=== PATIENT | female | born 1965 | race Caucasian/White ===

== ENCOUNTER 2018-12-27 11:02 | Emergency (ER) | payer BC ==
[2018-12-27] MEDS ORDERED: Potassium Chloride 20 MEQ Tab.ER PO ONE (11:32)
[2018-12-27] MEDS ORDERED: Meclizine 25 MG Tab PO ONE (11:32)
[2018-12-27] MEDS ORDERED: Potassium Chloride 10% 20 MEQ/15 ML Soln 15 ML UD Cup PO ONE (11:39)
--- NOTE | 2018-12-27 11:45 | EDM.PDOC ---
ED HPI GENERAL MEDICAL PROBLEM - General Stated Complaint: POTATISUM LOW Time Seen by Provider: 12/27/18 11:02 Source of Information: Reports: Patient, Family History Limitations: Reports: No Limitations - History of Present Illness INITIAL COMMENTS - FREE TEXT/NARRATIVE: 53 y.o.w.jacoby came to the ED with her SO after she was seen in the Walk in clinic and transferred to ed due to low potassium and dizziness. Her potassium was 2.0, Mg level(?). Her influenza test was post for Influenza A. Pt refused to take Tamiflu because her symptoms started last Wednesday and Tamiflu may not work anymore. Her dizziness come and goes for few days. It usually subsides she is in supine position and does not move. Pt denies sick contact. Her potassium was low in the past. Cause of her low potassium was not determined yet. No F/C no N/V. No chest pain or any other acute med. issues. BP 153/76 Pulse 91 Temp 37.1 RR 18 Pulse ox was 100% on RA Onset Date: 12/25/18 Duration: Intermittent Location: Reports: Head, Generalized Quality: Reports: Other (Dizzy) Severity: Moderate Improves with: Reports: Rest Worsens with: Reports: Movement Context: Reports: Other Associated Symptoms: Reports: Other (cold symptoms, running nose, sore throat) - Related Data Allergies Allergy/AdvReac Type Severity Reaction Status Date / Time No Known Allergies Allergy Verified 01/20/17 21:43 Home Meds: Home Meds Meclizine [Antivert] 25 mg PO Q6H PRN #20 tab 12/27/18 [Rx] Potassium Chloride [Potassium Chloride Solution] 20 meq PO BID #4 cup 12/27/18 [ Rx] ED ROS GENERAL - Review of Systems Review Of Systems: See Below Constitutional: Reports: Fatigue HEENT: Reports: Rhinitis Respiratory: Reports: No Symptoms Cardiovascular: Reports: No Symptoms Endocrine: Reports: No Symptoms GI/Abdominal: Reports: No Symptoms : Reports: No Symptoms Musculoskeletal: Reports: No Symptoms Skin: Reports: No Symptoms Neurological: Reports: Dizziness Psychiatric: Reports: No Symptoms Hematologic/Lymphatic: Reports: No Symptoms Immunologic: Reports: No Symptoms ED EXAM, DIZZINESS - Physical Exam Exam: See Below Exam Limited By: No Limitations General Appearance: Alert, WD/WN, Mild Distress Eye Exam: Bilateral Eye: Nystagmus (not worse with head movement) Ears: Normal External Exam Nose: Nasal Drainage Throat/Mouth: No Airway Compromise, Other (throat is red with whitish material on the tongue. Pt refused RST and Tongue sawbs ) Head Exam: Atraumatic, Normocephalic Neck: Normal Inspection, Supple, Non-Tender, Full Range of Motion Respiratory/Chest: No Respiratory Distress, Lungs Clear, Normal Breath Sounds, No Accessory Muscle Use, Chest Non-Tender Cardiovascular: Normal Peripheral Pulses, Regular Rate, Rhythm, No Edema, No Gallop, No JVD, No Murmur GI/Abdominal: Normal Bowel Sounds, Soft, Non-Tender, No Organomegaly, No Abnormal Bruit, No Mass, Pelvis Stable (Female) Exam: Deferred Rectal (Female) Exam: Deferred Back Exam: Normal Inspection, Full Range of Motion Extremities: Normal Inspection, Normal Range of Motion, Non-Tender, No Pedal Edema, Normal Capillary Refill Psychiatric: Normal Affect, Normal Mood Skin Exam: Warm, Dry, Intact, Normal Color, No Rash EKG INTERPRETATION EKG Date: 12/27/18 Time: 12:45 Rhythm: NSR Rate (Beats/Min): 95 [place]: Normal P-Wave: Present QRS: Normal ST-T: Normal QT: Normal Comparison: NA - No Prior EKG Course - Vital Signs Text/Narrative:: 53 y.o.w.f came to the ED with her SO after she was seen in the Walk in clinic and transferred to te ed due to low potassium and dizziness. Her potassium was 2.0, Mg level(?). Her influenza test was post for Influenza A. Pt refused to take Tamiflu because her symptoms started last Wednesday and Tamiflu may not work anymore. Her dizziness come and goes for few days. It usually subsides she is in supine position and does not move. Pt denies sick contact. Her potassium was low in the past. Cause of her low potassium was not determined yet. No F/C no N/V. No chest pain or any other acute med. issues. BP 153/76 Pulse 91 Temp 37.1 RR 18 Pulse ox was 100% on RA PE: WNWD W F with sore throat, pailful swallowing and Dizziness, refused RST, refuses ABX, Christiano Nystagmus Labs: K 2.9 Mg 2.0 Impression: Vertigo, Hypokalemia, Influenza A, Pharyngitis Tx: Antivert, 40 meq potassium Reexam: Pt refused RST, refused Tamilfu, refused test to check for oral fungus. Pt sated the Dizziness improved after Antivert was given Plan: D/C with instructions Last Recorded V/S: Last Vital Signs Temp 37.1 C 12/27/18 11:02 Pulse 92 12/27/18 11:02 Resp 18 12/27/18 11:02 BP 153/78 H 12/27/18 11:02 Pulse Ox 100 12/27/18 11:02 - Orders/Labs/Meds Orders: Active Orders 24 hr Category Date Time Status EKG Documentation Completion [RC] ASDIRECTED Care 12/27/18 12:30 Active EKG 12 Lead [EK] Routine Ther 12/27/18 12:30 Ordered Labs: Laboratory Tests 12/27/18 Range/Units 11:58 Magnesium 2.0 (1.8-2.5) mg/dL Meds: Medications Discontinued Medications Generic Name Dose Route Start Last Admin Trade Name Freq PRN Reason Stop Dose Admin Meclizine HCl 25 mg 12/27/18 11:32 12/27/18 11:45 Antivert PO 12/27/18 11:33 25 mg ONETIME ONE Administration Potassium Chloride 40 meq 12/27/18 11:32 12/27/18 11:51 Klor-Con M20 PO 12/27/18 11:33 Not Given ONETIME ONE Potassium Chloride 40 meq 12/27/18 11:39 12/27/18 11:45 Potassium Chloride Solution PO 12/27/18 11:40 40 meq ONETIME ONE Administration Departure - Departure Time of Disposition: 12:20 Disposition: Home, Self-Care 01 Condition: Good Clinical Impression: Vertigo, Influenza A, Hypokalemia - Discharge Information Prescriptions: Meclizine [Antivert] 25 mg PO Q6H PRN #20 tab PRN Reason: dizzyness Potassium Chloride [Potassium Chloride Solution] 20 meq PO BID #4 cup Instructions: Hypokalemia Referrals: Nisha Chakraborty CONTROL TECHNICIAN [Primary Care Provider] - Forms: ED Department Discharge Additional Instructions: Please take the potassium chloride and Antivert as recommended, for 2 days. Please get the potassium level checked 1-2 days after you have taken the last does of potassium chloride. Please please come back if your symptoms get worse acutely. - My Orders Last 24 Hours: My Active Orders 12/27/18 12:30 EKG Documentation Completion [RC] ASDIRECTED EKG 12 Lead [EK] Routine - Assessment/Plan Last 24 Hours: My Active Orders 12/27/18 12:30 EKG Documentation Completion [RC] ASDIRECTED EKG 12 Lead [EK] Routine
== END 2018-12-27 13:00 | disposition home or self-care (01) ==
LOC: FB.ED 11:02
DX: E87.6 Hypokalemia (principal); R42 Dizziness and giddiness; J10.1 Influenza due to other identified influenza virus with other respiratory manifestations
CPT/HCPCS: 36415; 70360; 83735; 93005; 94640; 96361; 96374; 99284-25; A9270-GY; J1200; J7030; J7620-GY

== ENCOUNTER 2018-12-27 18:14 | Emergency (ER) | payer BC ==
[2018-12-27] MEDS ORDERED: Sodium Chloride 0.9% 1,000 ML IV ONE (18:23)
[2018-12-27] MEDS ORDERED: Nystatin Susp 100,000 Unit/ML 5 ML UD Cup PO ONE (18:23)
[2018-12-27] MEDS ORDERED: Albuterol/Ipratropium 3.0-0.5 MG/3 ML Neb Soln NEB ONE (18:24)
[2018-12-27] MEDS: Sodium Chloride 0.9% 10 ML Syringe FLUSH PRN ×2 (18:40→19:57)
[2018-12-27] MEDS ORDERED: Morphine 2 MG/ML Syringe IVPUSH ONE (19:15)
--- NOTE | 2018-12-27 19:24 | EDM.PDOC ---
ED HPI GENERAL MEDICAL PROBLEM - General Stated Complaint: SOB DIZZY Time Seen by Provider: 12/27/18 18:14 Source of Information: Reports: Patient, Family History Limitations: Reports: No Limitations - History of Present Illness INITIAL COMMENTS - FREE TEXT/NARRATIVE: 53 y.o.w.f came to the ed about 6 hours after she was d/c'd from this ED with viral syndrome, hypokalemia and vertigo. She was doing fine on D/C. Pt came back now because of worsening sore throat and SOB. No dizziness, she just does not feel well. He CBC was nl 6 hours ago. Her potassium was 2.9. No C/P, as per SO, pt had poor po intake/water intake. No other acute medical issues. BP 144/83 Temp 37.1 RR 18 Pulse ox 98% on RA Pulse 89 Onset Date: 12/23/18 Onset Time: 07:00 Duration: Hour(s):, Day(s):, Intermittent Location: Reports: Generalized general Pain Score (Numeric/FACES): 4 - Related Data Allergies Allergy/AdvReac Type Severity Reaction Status Date / Time No Known Allergies Allergy Verified 12/27/18 19:15 Home Meds: Home Meds Meclizine [Antivert] 25 mg PO Q6H PRN #20 tab 12/27/18 [Rx] Potassium Chloride [Potassium Chloride Solution] 20 meq PO BID #4 cup 12/27/18 [ Rx] Past Medical History - Past Health History Medical/Surgical History: Denies Medical/Surgical History Social & Family History - Family History Family Medical History: Noncontributory - Caffeine Use Caffeine Use: Reports: Soda ED ROS GENERAL - Review of Systems Review Of Systems: See Below Constitutional: Reports: No Symptoms HEENT: Reports: Throat Pain Respiratory: Reports: Shortness of Breath Cardiovascular: Reports: No Symptoms Endocrine: Reports: No Symptoms GI/Abdominal: Reports: No Symptoms : Reports: No Symptoms Musculoskeletal: Reports: No Symptoms Skin: Reports: No Symptoms Neurological: Reports: No Symptoms Psychiatric: Reports: No Symptoms Hematologic/Lymphatic: Reports: No Symptoms Immunologic: Reports: No Symptoms ED EXAM, GENERAL - Physical Exam Exam: See Below Exam Limited By: No Limitations General Appearance: Alert, WD/WN, Mild Distress Eye Exam: Bilateral Eye: Normal Inspection Ears: Normal External Exam Ear Exam: Bilateral Ear: Auricle Normal Nose: Normal Inspection Throat/Mouth: Normal Lips, Normal Voice, No Airway Compromise, Dysphagia, Inflammation Head: Atraumatic, Normocephalic Neck: Normal Inspection, Supple, Non-Tender, Full Range of Motion Respiratory/Chest: No Respiratory Distress, Lungs Clear, Normal Breath Sounds, No Accessory Muscle Use, Chest Non-Tender Cardiovascular: Normal Peripheral Pulses, Regular Rate, Rhythm, No Edema, No Gallop, No Rub Peripheral Pulses: 2+: Brachial (L) GI/Abdominal: Normal Bowel Sounds, Soft, Non-Tender, No Organomegaly, No Distention, No Abnormal Bruit, No Mass (Female) Exam: Deferred Rectal (Female) Exam: Deferred Back Exam: Normal Inspection Extremities: Normal Inspection Neurological: Alert, Oriented, CN II-XII Intact, Normal Cognition, Normal Gait Psychiatric: Normal Affect Skin Exam: Warm, Dry, Intact, Normal Color, No Rash Lymphatic: No Adenopathy Course - Vital Signs Text/Narrative:: 53 y.o.w.f came to the ed about 6 hours after she was d/c'd from this ED with viral syndrome, hypokalemia and vertigo. She was doing fine on D/C. Pt came back now because of worsening sore throat and SOB. No dizziness, she just does not feel well. He CBC was nl 6 hours ago. Her potassium was 2.9. No C/P, as per SO, pt had poor po intake/water intake. No other acute medical issues. BP 144/83 Temp 37.1 RR 18 Pulse ox 98% on RA Pulse 89 PE: WNWD WF with sore throat (refused RST and fungal swab) Imaging: Soft tissue neck was neg, Epiglottis was nl, official report is pending Impression: SOB sore throat Tx: Duoneb, Nystatin, NS Reexam: Pt's symptoms improved, Pt refused RST, Fungal swab, refused admission. Plan: D/C with instructions Last Recorded V/S: Last Vital Signs Temp 37.5 C 12/27/18 20:00 Pulse 85 12/27/18 20:00 Resp 17 12/27/18 20:00 BP 142/72 H 12/27/18 20:00 Pulse Ox 100 12/27/18 20:00 - Orders/Labs/Meds Orders: Active Orders 24 hr Category Date Time Status RT Aerosol Therapy [RC] ASDIRECTED Care 12/27/18 18:25 Active CXR [Chest 1V Frontal] [CR] Stat Exams 12/27/18 18:25 Stop Req Neck Soft Tissue [CR] Stat Exams 12/27/18 18:25 Taken Peripheral IV Insertion Adult [OM.PC] Routine Oth 12/27/18 18:45 Ordered Meds: Medications Discontinued Medications Generic Name Dose Route Start Last Admin Trade Name Freq PRN Reason Stop Dose Admin Albuterol/Ipratropium 3 ml 12/27/18 18:24 12/27/18 18:45 Duoneb 3.0-0.5 Mg/3 Ml NEB 12/27/18 18:25 3 ml ONETIME ONE Administration Diphenhydramine HCl 25 mg 12/27/18 19:53 12/27/18 19:56 Benadryl IVPUSH 12/27/18 19:54 25 mg ONETIME STA Administration Sodium Chloride 1,000 mls @ 999 mls/hr 12/27/18 18:23 12/27/18 18:45 Normal Saline IV 12/27/18 19:23 999 mls/hr .BOLUS ONE Administration Nystatin 5 ml 12/27/18 18:23 12/27/18 19:29 Mycostatin PO 12/27/18 18:24 5 ml ONETIME ONE Administration Sodium Chloride 10 ml 12/27/18 18:45 12/27/18 19:57 Saline Flush FLUSH 10 ml ASDIRECTED PRN Administration Keep Vein Open Departure - Departure Time of Disposition: 19:51 Disposition: Home, Self-Care 01 Condition: Good Clinical Impression: Viral syndrome - Discharge Information Instructions: Influenza, Adult, [id number] Referrals: Nisha Chakraborty NP [Primary Care Provider] - Forms: ED Department Discharge Additional Instructions: Please cont your meds, please take the meds as recommended at your previous D/ C. Please f/u, come back if your symptoms get worse acutely. Please make carlos, all your meals are arm. - My Orders Last 24 Hours: My Active Orders 12/27/18 18:25 RT Aerosol Therapy [RC] ASDIRECTED CXR [Chest 1V Frontal] [CR] Stat Neck Soft Tissue [CR] Stat 12/27/18 18:45 Peripheral IV Insertion Adult [OM.PC] Routine - Assessment/Plan Last 24 Hours: My Active Orders 12/27/18 18:25 RT Aerosol Therapy [RC] ASDIRECTED CXR [Chest 1V Frontal] [CR] Stat Neck Soft Tissue [CR] Stat 12/27/18 18:45 Peripheral IV Insertion Adult [OM.PC] Routine
[2018-12-27] MEDS ORDERED: diphenhydrAMINE 50 MG/ML SDV IVPUSH STA (19:53)
--- NOTE | 2018-12-28 13:45 | CR ---
INDICATION: Neck pain - shortness of breath, question epiglottitis. NECK, SOFT TISSUE: Frontal and lateral views of the neck were obtained. The airway appears to be patent with no evidence of epiglottitis identified. Prevertebral space appeared to be normal. Narrowing of the disk spaces is noted at C5-6, C6-7. No significant hypertrophic degenerative changes were seen, however. Slight straightening of the normal cervical lordosis is noted, which may be positional. IMPRESSION: No evidence of epiglottitis identified. MTDD
== END 2018-12-27 20:09 | disposition home or self-care (01) ==
LOC: FB.ED 18:14
DX: B34.9 Viral infection, unspecified (principal)
CPT/HCPCS: 36415; 70360; 83735; 93005; 94640; 96361; 96374; 99284-25; A9270-GY; J1200; J7030; J7620-GY

== ENCOUNTER 2025-07-20 02:59 | Emergency (ER) | payer BC ==
[2025-07-20 03:23] LABS: BASOPHILS ABSOLUTE AUTO 0.1 x10-3/uL (0.0-0.1); BASOPHILS PERCENT AUTO 1.0 % (0.2-1.5); EOSINOPHILS ABSOLUTE AUTO 0.2 x10-3/uL (0.0-0.8); EOSINOPHILS PERCENT AUTO 2.8 % (0.6-8.1); LYMPHOCYTES ABSOLUTE AUTO 1.1 x10-3/uL (1.0-4.4); LYMPHOCYTES PERCENT AUTO 17.9 % (18.4-52.1); MEAN PLATELET VOLUME 8.1 fL (7.1-12.4); MONOCYTES ABSOLUTE AUTO 0.4 x10-3/uL (0.3-1.0); MONOCYTES PERCENT AUTO 6.4 % (4.4-15.7); NEUTROPHILS ABSOLUTE AUTO 4.4 x10-3/uL (1.5-6.3); NEUTROPHILS PERCENT AUTO 71.9 % (30.8-76.2); PLATELET COUNT,PLT 254 x10(3)uL (151-488); RED BLOOD CELL COUNT 4.65 x10(6)uL (3.60-5.20); RED CELL DISTRIBUTION WIDTH 12.6 % (12.3-16.5); WHITE BLOOD CELL COUNT,WBC 6.2 x10-3/uL (3.0-10.3)
[2025-07-20 03:24] VITALS: BP 136/97; PULSE 93
[2025-07-20 03:33] LABS: A/G RATIO 1.2; ALANINE AMINOTRANSFERASE,ALT 25 U/L (12-36); ASPARTATE AMNIOTRANSFERASE,AST 19 IU/L (5-25); BILIRUBIN TOTAL 0.8 mg/dL (0.1-1.3); BLOOD UREA NITROGEN,BUN 5 mg/dL (7-18); CARBON DIOXIDE,CO2 22 mmol/L (21-32); CHLORIDE,CL 102 mmol/L (100-110); CREATININE 0.7 mg/dL (0.55-1.02); EST CRCL DRUG DOSING (CG) 76.57 mL/min; ESTIMATED GFR 101 mL/min (>60); GLUCOSE RANDOM 127 mg/dL (80-116); PROTEIN TOTAL,TP 6.9 g/dL (6.0-8.0); SODIUM,NA 136 mmol/L (135-145)
[2025-07-20 03:34] LABS: POTASSIUM,K 2.8 mmol/L (3.5-5.3)
[2025-07-20 03:41] LABS: TSH ULTRASENSITIVE 2.84 IU/mL (0.36-3.74)
[2025-07-20] MEDS: Potassium Chloride 20 MEQ in Premix Bag 1 BAG IV ONE (03:46)
[2025-07-20] MEDS: Ondansetron 4 MG/2 ML SDV IVPUSH ONE (03:46)
[2025-07-20] MEDS: Potassium Chloride 20 MEQ Tab.ER PO ONE (03:54)
[2025-07-20 06:35] LABS: BLOOD UREA NITROGEN,BUN 6 mg/dL (7-18); CARBON DIOXIDE,CO2 25 mmol/L (21-32); CHLORIDE,CL 99 mmol/L (100-110); CREATININE 0.8 mg/dL (0.55-1.02); EST CRCL DRUG DOSING (CG) 67.00 mL/min; ESTIMATED GFR 86 mL/min (>60); GLUCOSE RANDOM 128 mg/dL (80-116); POTASSIUM,K 3.9 mmol/L (3.5-5.3); SODIUM,NA 132 mmol/L (135-145)
== END 2025-07-20 06:58 | disposition home or self-care (01) ==
LOC: FB.ED 02:59
DX: E87.6 Hypokalemia (principal); Z79.899 Other long term (current) drug therapy
CPT/HCPCS: 36415; 80048; 80053; 84443; 84484; 85025; 93005; 93010; 96365; 96366; 96375; 99284; 99285-25; A9270-GY; J2405; J3480